=== PATIENT | male | born 1990 | race African-American/Black ===

== ENCOUNTER 2022-07-28 08:31 | Emergency (ER) | payer OTHER ==
[~2022-07-28] VITALS: Ht 193 cm; Wt 92.0 kg
[2022-07-28 08:35] VITALS: BP 178/84
[2022-07-28] MEDS ORDERED: ACETAMINOPHEN 325MG TABLET PO ONE (09:30)
[2022-07-28] MEDS ORDERED: IBUPROFEN 400MG TABLET PO ONE (09:30)
[2022-07-28] MEDS ORDERED: IBUP-2028 MT (10:55)
[2022-07-28] MEDS ORDERED: ACET-2708 MT (10:55)
== END 2022-07-28 11:09 | disposition home or self-care (01) ==
LOC: ER 08:31
DX: S93.401A Sprain of unspecified ligament of right ankle, initial encounter (principal); W50.2XXA Accidental twist by another person, initial encounter; Y93.89 Activity, other specified; Y92.89 Other specified places as the place of occurrence of the external cause; Y99.8 Other external cause status
CPT/HCPCS: 29515; 73610; 99283; Z7610